=== PATIENT | male | born 1985 | race American Indian/Alaskan Native ===

== ENCOUNTER 2020-01-31 17:10 | Emergency (ER) | payer OTHER ==
[2020-01-31] MEDS ORDERED: Naloxone 2 MG/2 ML Syringe ONE (17:33)
[2020-01-31] MEDS ORDERED: LORazepam 2 MG/ML Syringe ONE (17:34)
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
[2020-01-31 17:45] LABS: CHLORIDE,CL 106 mEq/L (98-106); SODIUM,NA 142 mEq/L (136-145)
[2020-01-31] MEDS ORDERED: Naloxone 2 MG/2 ML Syringe IVPUSH ONE (17:51)
[2020-01-31] MEDS ORDERED: Diphtheria,Pertussis(Acell),Tetanus Vaccine 0.5 ML Syringe IM ONE (18:19)
[2020-01-31] MEDS ORDERED: Lactated Ringers 1,000 ML IV SCH (18:30)
== END 2020-01-31 19:29 ==
LOC: CC.ED 17:10 → EDBD 17:10 → CC.ED 19:29
DX: R40.1 Stupor (principal); F15.129 Other stimulant abuse with intoxication, unspecified; R78.0 Finding of alcohol in blood; Y90.8 Blood alcohol level of 240 mg/100 ml or more; Z23 Encounter for immunization
CPT/HCPCS: 36415; 70450; 71250; 72125; 74176; 80053; 80305-QW; 80307; 81001; 83605; 85025; 85610; 86803; 87340; 87389; 90471; 90715; 96361; 96374; 99285-25; J2310; J7120